=== PATIENT | male | born 2000 | race African-American/Black ===

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

== ENCOUNTER 2021-01-06 07:54 | Emergency (ER) | payer OTHER | END 2021-01-06 08:55 | disposition home or self-care (01) | LOC: ERS 07:54 | DX: S62.002A Unspecified fracture of navicular [scaphoid] bone of left wrist, initial encounter for closed fracture (principal); F90.9 Attention-deficit hyperactivity disorder, unspecified type; Z79.899 Other long term (current) drug therapy; Y04.0XXA Assault by unarmed brawl or fight, initial encounter | CPT/HCPCS: 99281 ==

== ENCOUNTER 2021-01-15 15:01 | Outpatient (CLI) | payer OTHER | END 2021-01-15 15:02 | disposition home or self-care (01) | LOC: BICCT 15:01 | PROVIDERS: ATTEND Surgery Surgery of the Hand | DX: S62.025A Nondisplaced fracture of middle third of navicular [scaphoid] bone of left wrist, initial encounter for closed fracture (principal) ==

== ENCOUNTER 2024-10-17 08:25 | Outpatient (CLI) | payer OTHER ==
[2024-10-17] MEDS ORDERED: Magnevist 469MG/ML 20 ML VIAL ONE (14:09)
== END 2024-10-17 08:26 | disposition home or self-care (01) ==
LOC: BICMRI 08:25
PROVIDERS: ATTEND Psychiatry & Neurology Neurology
DX: G11.9 Hereditary ataxia, unspecified (principal); G93.9 Disorder of brain, unspecified
CPT/HCPCS: 70553